=== PATIENT | female | born 2005 | race Caucasian/White ===

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

== ENCOUNTER 2025-10-31 19:01 | Emergency (ER) | payer BC, SELFPAY ==
--- OUTSIDE RECORDS SUMMARY | 2025-10-31 19:12 | XMS_ITS | Data Portability ---
Author Organization [employer] [place] - [place] Address [address] [place] [address] Assessment Encounter Date Assessment Date Assessment LastModified by Organization Details LastModified Time 05/30/2025 05/30/2025 #Contraception/n explanon -VSS, afebrile -Exam benign -ED precautions -Discussed contraception options--she would like to come back to have nexplanon removed prior to her vacation next week, plans to use condoms, wants to go without hormone interim, understands r/b/a -May want to consider US once hormone free for a few months, general questions addressed about endo/PCOS and limited modality to dx clinically; would recommend OTC motrin/tylenol prn during period and tracking RTC first available for removal, sooner prn. Pt verbalized understanding, and all questions addressed. [email or web address] Not available 05/30/2025 16:57:23 06/05/2025 06/05/2025 #Contraception -VSS, afebrile -Exam benign -ED precautions -UPT negative -Counseled on contraception, [facility] Cat 1 POP; discussed r/b/a, how to take, etc. Sample of slynd x 1 mo given in office. RTC 1 year, sooner prn. Pt to call about slynd, if doing well will send refills. Pt verbalized understanding, and all questions addressed. [email or web address] Not available 06/05/2025 14:33:30 09/22/2025 09/22/2025 #Spotting/nausea -VSS, afebrile -Exam benign -ED precautions -UPT pending -Rx diclegis, advised zoloft best studied in , risks assc, need for safe mother for etc. -Vaginitis swab sent RTC as scheduled, sooner prn. Pt v/u, and all questions addressed. [email or web address] Not available 09/22/2025 17:02:47 Plan of Treatment Reminders Order Date Submit Date Provider Last Modified By Organization Details Last Modified Time Details Appointments 2024 09:30A Katia Guerrero, DO Not available Not available Not available Lab aneuploid y risk, chromosom e specific circulati ng cell free (ccf) DNA, maternal serum 2024 025 [email or web address] [facility], [address], [place], [address], 10/30/2025 11:26:09 genetic screen, unspecifi ed specimen 2024 [email or web address] [facility], [address], [place], [address], 10/30/2025 11:26:44 urinalysi s, dipstick 2024 025 [email or web address] [facility], [address] [place] [address], [facility] [address], [place], [address], 10/09/2025 15:04:33 urinalysi s, dipstick 2024 025 [facility], [address] [place] [address], [address], [place], [address], 10/09/2025 17:02:20 panel 2024 [email or web address] [facility], [address] [place] [address], [place], [address], 10/30/2025 08:08:31 unlisted lab - toxassure flex 19, [id number] -P 2024 [email or web address] [facility] ([place]), [address] [facility], [place], [address], 10/30/2025 08:08:31 vaginal pathogens panel, FLYNN+probe , vaginal fluid 2024 025 BISMARCK [facility] ([place]), [address] [place], [address], 09/25/2025 22:06:37 test, urine 2024 025 [email or web address] [facility], [address] [place] [address], [address], [place], [address], 06/05/2025 14:34:37 Referral None recorded. Procedures None recorded. Surgeries None recorded. Imaging US, obstetric , transvagi nal 2024 025 [email or web address] [facility], [address] [place] [address], [address], 10/10/2025 08:54:39 US, obstetric 2024 025 [email or web address] [facility], [address] [place] [address], [address], [place], [address], 10/10/2025 13:58:44 US, pelvis 2024 025 [email or web address] [facility], [address] [place] [address], [address], 04/11/2025 14:18:25 Medication Orders promethaz ine 12.5 mg tablet 2024 025 [id number], [address] [place], [id number], 10/09/2025 16:54:31 Colace 100 mg capsule 2024 025 [id number], [address], [place], [place], [id number], 10/09/2025 16:54:37 Diclegis 10 mg-10 mg tablet,de layed release 2024 025 BISMARCK [id number], [address], [place], [place], [id number], 09/22/2025 17:03:14 Patient TargetsNo targets recorded. Patient Instructions Encounter Date Encounter Id Patient Instructions Last Modified By Organization Details Last Modified Time 01/27/2025 [id number] painful menstrua l cramps: care instructions [email or web address] Not available 01/27/2025 14:31:43 06/05/2025 [id number] implant for arnaud h control: care instructions [email or web address] Not available 06/05/2025 14:34:37 09/22/2025 [id number] secondary amenorrhea: care instructions [email or web address] Not available 09/22/2025 17:03:01 Reason for Referral None Reported. Results Created Date Observation Date Name Description Value Unit Range Abnormal Flag Note LastModifiedBy Organization Detail LastModifiedTime 06/05/2006/05/2025 pregn jia test, urine HCG negati ve Not Available [facility] [address], [place], [address], 06/05/2025 08:07:59 09/22/2009/24/2025 NUSWA B VAGIN ITIS PLUS (VG+) atopobium vaginae Low - 0 score Not Available [facility] ([facility]) [address] [place], [address], 09/25/2025 22:06:37 09/22/20 25 09/24/2025 NUSWA B VAGIN ITIS PLUS (VG+) bvab 2 Low - 0 score Not Available [facility] ([facility]) [address] [facility], [place], [address], 09/25/2025 22:06:37 09/22/20 25 09/24/2025 NUSWA B VAGIN ITIS PLUS (VG+) megasphaera 1 Low - 0 score Calcu late total score by randall morataya the 3 indiv idual bacte rial vagin osis (BV) marke r score s toget her. Total score is inter prete d as follo ws: Total score 0-1: Indic ates the absen ce of BV. Total score 2: Indet ermin ate for BV. Addit ional clini maximilian data shoul d be evalu ated to estab maeve a diagn osis. Total score 3-6: Indic ates the prese nce of BV. Not Available [facility] ([facility]) [address] [place], [address], 09/25/2025 22:06:37 09/22/20 25 09/24/2025 NUSWA B VAGIN ITIS PLUS (VG+) erin albicans, FLYNN Negati ve negati ve Not Available [facility] ([facility]) [address] [place], [address], 09/25/2025 22:06:37 09/22/20 25 09/24/2025 NUSWA B VAGIN ITIS PLUS (VG+) erin glabrata, FLYNN Negati ve negati ve Not Available [facility] ([facility]) [address] [place], [address], 09/25/2025 22:06:37 09/22/20 25 09/25/2025 NUSWA B VAGIN ITIS PLUS (VG+) trich vag by FLYNN Negati ve negati ve Not Available [facility] ([facility]) [address] [place], [address], 09/25/2025 22:06:37 09/22/20 25 09/25/2025 NUSWA B VAGIN ITIS PLUS (VG+) chlamydia trachomatis, FLYNN Negati ve negati ve Not Available [facility] ([facility]) [address] [place], [address], 09/25/2025 22:06:37 09/22/20 25 09/25/2025 NUSWA B VAGIN ITIS PLUS (VG+) neisseria gonorrhoeae, FLYNN Negati ve negati ve Not Available [facility] ([facility]) [address], [place], [address], 09/25/2025 22:06:37 10/09/20 25 10/09/2025 urina lysis , dipst ick Leukocytes Negati ve Not Available [address], [place], [address], 10/09/2025 16:53:26 10/09/20 25 10/09/2025 urina lysis , dipst ick Nitrite negati ve Not Available [address], [place], [address], 10/09/2025 16:53:26 10/09/20 25 10/09/2025 urina lysis , dipst ick Urobilinogen .2 Not Available [address], [place], [address], 10/09/2025 16:53:26 10/09/20 25 10/09/2025 urina lysis , dipst ick Protein Negati ve Not Available [address], [place], [address], 10/09/2025 16:53:26 10/09/20 25 10/09/2025 urina lysis , dipst ick pH 7.0 Not Available [address], [place], [address], 10/09/2025 16:53:26 10/09/20 25 10/09/2025 urina lysis , dipst ick Blood Negati ve Not Available [address], [place], [address], 10/09/2025 16:53:26 10/09/20 25 10/09/2025 urina lysis , dipst ick Specific [place] 1.020 Not Available [address], [place], [address], 10/09/2025 16:53:26 10/09/20 25 10/09/2025 urina lysis , dipst ick Ketone Negati ve Not Available [address], [place], [address], 10/09/2025 16:53:26 10/09/20 25 10/09/2025 urina lysis , dipst ick Bilirubin Negati ve Not Available [address], [place], [address], 10/09/2025 16:53:26 10/09/20 25 10/09/2025 urina lysis , dipst ick Glucose Negati ve Not Available [address], [place], [address], 10/09/2025 16:53:26 10/09/20 25 10/09/2025 urina lysis , dipst ick Leukocytes Negati ve Not Available [address], [place], [address], 09/29/2025 08:17:58 10/09/20 25 10/09/2025 urina lysis , dipst ick Nitrite negati ve Not Available [address], [place], [address], 09/29/2025 08:17:58 10/09/20 25 10/09/2025 urina lysis , dipst ick Urobilinogen .2 Not Available [address], [place], [address], 09/29/2025 08:17:58 10/09/20 25 10/09/2025 urina lysis , dipst ick Protein Negati ve Not Available [address], [place], [address], 09/29/2025 08:17:58 10/09/20 25 10/09/2025 urina lysis , dipst ick pH 7.0 Not Available [address], [place], [address], 09/29/2025 08:17:58 10/09/20 25 10/09/2025 urina lysis , dipst ick Blood Negati ve Not Available [address], [place], [address], 09/29/2025 08:17:58 10/09/20 25 10/09/2025 urina lysis , dipst ick Specific [place] 1.020 Not Available [address], [place], [address], 09/29/2025 08:17:58 10/09/20 25 10/09/2025 urina lysis , dipst ick Ketone Negati ve Not Available [address], [place], [address], 09/29/2025 08:17:58 10/09/20 25 10/09/2025 urina lysis , dipst ick Bilirubin Negati ve Not Available [facility] - [address], [place], [address], 09/29/2025 08:17:58 10/09/20 25 10/09/2025 urina lysis , dipst ick Glucose Negati ve Not Available [facility] - [address], [place], [address], 09/29/2025 08:17:58 10/09/20 25 10/09/2025 US, obste tric, trans vagin al No observ ation record ed. [email or web address] [address] [place] [address], [place], [address], 10/11/2025 09:13:48 10/10/2010/11/2025 US, obste tric No observ ation record ed. [email or web address] [facility] - [address], [place], [address], 10/17/2025 11:25:31 Result Notes None recorded. 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 3 11:24:12 Pelvic and perineal pain 004425450 Active 2022 Joanie Horta APRN [address] [place], [address], [place] [employer] 3 11:24:34 Vaginal irritation 617661268 Active 2022 Joanie Horta, NA[employer] [address] [place] [address], [address], [employer] 3 15:53:33 Abnormal uterine bleeding 2534928064948 0 Active 2024 Joanie Byrneiam [employer] [address] [place] [address], [address], [employer] 5 14:30:29 Dysmenorrhe a 561865243 Active 2024 Joanie Byrneiam NAIL [employer] [address] [place] [address], [address], [employer] 5 14:31:42 Break-throu gh bleeding 04165663 Active 2024 Frida Guerrero [address], [address], [employer] 5 16:55:42 Vaginal discharge 886703083 Active 2024 Frida Guerrero [address], [address], [employer] 5 17:01:28 Amenorrhea 98426114 Active 2024 Frida Guerrero [address], [address], [employer] 5 17:01:40 96927490 Active 2024 Teodora Balderrama [facility], [employer] 5 15:18:53 Problem Notes None recorded. Procedures Surgical History Date Name Laterality Status Provider Name and Address Organization Details Recorded Time 5 Control Implant Removal completed Frida Guerrero DO [address] [place] [address], [address], [employer] 06/05/2025 14:32:27 4 Control Implant Insertion completed Joanielilibeth Horta APRN [address] [place] [address], [address], [facility] [employer], [facility]. 08/12/2024 15:55:32 Imaging Results None recorded. Procedure Notes None recorded. Medical Equipment None Reported. Allergies No known drug allergies Medications Name Sig Start Date Stop Date Status Note LastModified by Organization Details LastModified Time buspirone 5 mg tablet TAKE 1 TABLET BY MOUTH EVERY DAY 11/11 completed Not Available Not Available Not Available norgestimat e 0.25 mg-ethinyl estradiol 0.035 mg tablet Take 1 tablet by oral route. 08/12 completed Not Available Not Available Not Available doxycycline hyclate 100 mg capsule 08/12 completed Not Available Not Available Not Available ibuprofen 800 mg tablet 08/12 completed Not Available Not Available Not Available fluconazole 150 mg tablet TAKE 1 TABLET BY MOUTH EVERY 72 HOURS 12/10 completed Not Available Not Available Not Available promethazin e 12.5 mg tablet TAKE 1 TABLET BY MOUTH EVERY 6 HOURS FOR 14 DAYS NEEDED FOR NAUSEA active Not Available Not Available No t Available phenazopyri dine 200 mg tablet TAKE 1 TABLET BY MOUTH THREE TIMES A DAY 08/12 completed Not Available Not Available Not Available metronidazo le 500 mg tablet TAKE 1 TABLET BY MOUTH EVERY 12 HOURS 12/10 completed Not Available Not Available Not Available ciprofloxac in 500 mg tablet 10/22 completed Not Available Not Available Not Available sulfamethox azole 800 mg-trimetho prim 160 mg tablet TAKE 1 TABLET 2 TIMES EACH DAY FOR 10 DAYS 11/11 completed Not Available Not Available Not Available baclofen 10 mg tablet 10/22 completed Not Available Not Available Not Available docusate sodium 100 mg capsule TAKE 1 CAPSULE BY MOUTH TWICE DAILY active Not Available Not Available No t Available sertraline 25 mg tablet TAKE 1 TABLET BY MOUTH DAILY 09/22 completed Not Available Not Available Not Available montelukast 10 mg tablet 08/12 completed Not Available Not Available Not Available hydrocodone 10 mg-chlorphe niramine 8 mg/5 mL oral susp extend.rel 12hr TAKE 5 ML (1 TEASPOONF UL) EVERY 12 HOURS NEEDED FOR COUGH 11/11 completed Not Available Not Available Not Available norethindro ne (contracept karla) 0.35 mg tablet TAKE 1 TABLET BY MOUTH EVERY DAY 09/22 completed Not Available Not Available Not Available fluticasone propionate 50 mcg/actuati on nasal spray,suspe nsion 10/22 completed Not Available Not Available Not Available doxylamine 10 mg-pyridoxi ne (vit B6) 10 mg tablet,joshua yed release TAKE 2 TABLETS BY MOUTH AT BEDTIME NEEDED FOR NAUSEA active Not Available Not Available No t Available levocetiriz ine 5 mg tablet 10/22 completed Not Available Not Available Not Available Nexplanon 68 mg subdermal implant Inject by subcutane ous route. 09/22 completed Not Available Not Available Not Available Twirla 120 mcg-30 mcg/24 hr transdermal patch Apply 1 patch every week by transderm al route for 21 days. 08/12 completed Not Available Not Available Not Available Nextstellis 3 mg-14.2 mg (28) tablet Take 1 tablet every day by oral route. 01/17 completed Not Available Not Available Not Available Vitals Date Recorded Body height Body mass index (BMI) [Percentile] Per age and sex Body mass index (BMI) Body weight Heart rate Oxygen saturation Systolic And Diastolic Provider Name and Address Organization Details Last Updated DateTime 5 175.26 cm 7 % 18.1 kg/m2 41317.1 4 g 78 /min 100 % 118/70 mm[Hg] Yanni Winters [employer] 5 13:46:31 Date Recorded Body height Body mass index (BMI) Body mass index (BMI) [Percentile] Per age and sex Body weight Heart rate Oxygen saturation Systolic And Diastolic Provider Name and Address Organization Details Last Updated DateTime 5 175.26 cm 17.3 kg/m2 2 % 12528.3 1 g 89 /min 97 % 110/75 mm[Hg] Cami Franz [employer] 5 16:25:07 Date Recorded Body height Body mass index (BMI) [Percentile] Per age and sex Body mass index (BMI) Body weight Heart rate Oxygen saturation Systolic And Diastolic Provider Name and Address Organization Details Last Updated DateTime 5 175.26 cm 3 % 17.5 kg/m2 65494.0 6 g 110 /min 97 % 126/83 mm[Hg] Cami Franz [employer] 5 13:55:15 Date Recorded Body height Body mass index (BMI) Body mass index (BMI) [Percentile] Per age and sex Body weight Heart rate Oxygen saturation Systolic And Diastolic Provider Name and Address Organization Details Last Updated DateTime 5 175.26 cm 17.1 kg/m2 2 % 67278.7 1 g 93 /min 97 % 109/71 mm[Hg] Mehreen Vera [employer] 5 15:47:54 Date Recorded Body height Body mass index (BMI) [Percentile] Per age and sex Body mass index (BMI) Body weight Heart rate Oxygen saturation Systolic And Diastolic Provider Name and Address Organization Details Last Updated DateTime 5 175.26 cm 2 % 17.1 kg/m2 50752.7 1 g 90 /min 98 % 121/75 mm[Hg] Teodora Pinedakel [employer] 5 15:03:23 Social History Question Answer Notes LastModified by Organizat ion Details LastModified Time Tobacco Smoking Status Never Smoker Yanni quintanilla [employer] 10/22/2023 10:46:41 Do You Have An Advance Directive? No [email or web address] Information not available 09/22/2025 Is Your Home Air Conditioned? Yes [email or web address] Information not available 09/22/2025 If You Are , What Was Your Level Of Alcohol Consumption Prior To ? None [email or web address] Information not available 10/22/2023 Do You Wear A Helmet When Biking? Yes Information not available 08/12/2024 What Is Your Level Of Caffeine Consumption? Moderate [email or web address] Information not available 09/22/2025 Are You A Caregiver? No [email or web address] Information not available 09/22/2025 In The 14 Days Before Symptom Onset, Have You Had Close Contact With A Laboratory-confir med COVID-19 While That Case Was Ill? No Information not available 08/12/2024 In The 14 Days Before Symptom Onset, Have You Had Close Contact With A Person Who Is Under Investigation For COVID-19 While That Person Was Ill? No Information not available 08/12/2024 Have You Been To An Area Known To Be High Risk For COVID-19? No Information not available 08/12/2024 What Type Of Diet Are You Following? REGULAR Information not available 08/12/2024 What Is The Highest Grade Or Level Of School You Have Completed Or The Highest Degree You Have Received? [id number] [email or web address] Information not available 09/22/2025 Have There Been Any Changes To Your Family Or Social Situation? No [email or web address] Information no t available 09/22/2025 Are There Any Guns Present In Your Home? Yes [email or web address] Information not available 09/22/2025 Which Of Your Hands Is Dominant? Right [email or web address] Information not available 09/22/2025 Where Do You Live? SingleLevelHouse [email or web address] Information not available 09/22/2025 Do You Have A Medical Power Of Digital Product Manager? No [email or web address] Information not available 09/22/2025 What Was The Date Of Your Most Recent Tobacco Screening? 10/09/2025 [email or web address] Information not available 09/29/2025 Are There Any Occupational Health Risks Where You Work? No [email or web address] Information not available 09/22/2025 Do You Have Any Pets? Yes [email or web address] Information not available 09/22/2025 What Is Your Relationship Status? [email or web address] Information not available 09/22/2025 Do You Wear A Seatbelt When Driving Or As A Passenger? Yes Information not available 09/22/2025 Do You Use Your Seat Belt Or Car Seat Routinely? Yes Information not available 08/12/2024 Are You Sexually Active? Yes [email or web address] Information not available 10/22/2023 Do You Have Smoke And Carbon Monoxide Detectors In Your Home? Yes [email or web address] Information not available 09/22/2025 Are You Passively Exposed To Smoke? Yes [email or web address] Information no t available 09/22/2025 Are There Any Smokers In Your House? No [email or web address] Information not available 09/22/2025 Do You Participate In Social Media? Yes Information not available 08/12/2024 Has Tobacco Cessation Counseling Been Provided? Yes Information not available 08/12/2024 On What Date Was Tobacco Cessation Counseling Provided? 01/27/2025 [email or web address] Information not available 01/27/2025 Have You Recently Traveled Abroad? No Information not available 08/12/2024 Are You Currently In School? No [email or web address] Information not available 09/22/2025 Do You Feel Safe In Your Home? Yes [email or web address] Information not available 09/22/2025 Do You Have Any Dietary Restrictions? No Information not available 08/12/2024 Sex: Unknown Functional Status Question Answer Note LastModified by Organizat ion Details LastModified Time Do you use any illicit or recreational drugs? No [email or web address] Information not available 10/22/2023 Do you or have you ever used any other forms of tobacco or nicotine? No [email or web address] Information not available 10/22/2023 What is your level of alcohol consumption? None [email or web address] Information not available 10/22/2023 Are you currently employed? Yes [email or web address] Information not available 09/22/2025 Do you have transportation difficulties? No [email or web address] Information not available 09/22/2025 Are you able to care for yourself independently? Yes [email or web address] Information not available 09/22/2025 What is your exercise level? Occasional Information not available 08/12/2024 Mental Status Question Answer Note LastModified by Organization D etails LastModified Time Do you feel stressed (tense, restless, nervous, or anxious, or unable to sleep at night)? [id number] Information not available 08/12/2024 Are you or have you been involved with bullying? No Information not available 08/12/2024 Family History Relationship Description Onset Age of this Age Resolved Age Notes LastModified by Organization Details LastModified Time Maternal Grandmother Malignant neoplasm of breast [email or web address] Not available 2022 10:52:39 Paternal Grandfather Diabetes mellitus [email or web address] Not available 2022 10:52:57 Paternal Grandmother Diabetes mellitus dtevis Not available 2022 10:52:57 Paternal Grandmother Cerebrovascu lar accident API-27 Not available 13:39:33 Mother Hypertensive disorder dtevis Not available 2022 10:53:42 Medical History Condition Response Allergies (Food, seasonal, environmental ) N Other N Hyperthyroidism N Drug/Latex Allergies/Reactions N Breast Cancer N Blood Transfusion N Emergency room visit since last appointm ent. N Lung Disease N Hypothyroidism N Dermatologic Disorders N Defects or Inherited Disease N Breast Problem N Gestational Diabetes N Hematologic disorders N Anesthesia Complications N History of STI N Deep Vein Thrombosis N Polycystic ovary syndrome N Anxiety Disorder Y Autoimmune disease N Vision or Eye Problems N Arthritis N Polyps N Infertility N Mental Disorder N Congenital Anomalies N History of abnormal pap N Acid Reflux (GERD) N Cancer N Stroke N Neurologic/Epilepsy N Endometriosis N High Cholesterol N Psychiatric/Mental Health Condition N Organ Transplant N Schizophrenia N Headaches N Fibromyalgia N Dialysis N Kidney Disease N Heart Problems N Hospitalizations N Thyroid Problems N Kidney or Bladder Problems N GI Problems N Acne N Eating Disorder N Anemia N Art (IVF or FET) N Mental Illness N Ovarian Cancer N Diabetes N Pulmonary (TB, Asthma) N Hepatitis/Liver Disease N Eczema N Abuse/Domestic Violence N Asthma N Trauma/Violence N Substance Abuse N Depression/ depression N Heart Disease N Pre-Eclampsia N Hypertension N Osteoporosis N Thrombophilias N Gynecological History Statement/Question Response Flow Heavy Sexually Active? Y On BCP's at Conception? Y Menses Monthly Y STIs/STDs N HPV Vaccine N Date of Last Pap Smear Sexual Problems? N Age at Menarche 14 Current Control Method LMP Approximate Obstetrics History GPAL:G 1 P 0 0 0 0 Past Encounters Encounter ID Performer Location Encounter Start Date Encounter Closed Date Diagnosis/Indication Diagnosis SNOMED-CT Code Diagnosis ICD10 Code Diagnosis IMO Codes Diagnosis Note [id number] Joanie Horta [facility] [address] [place] [id number] 10/22/2023 10:37:00 10/22/2023 13:37:55 Dysuria-frequency syndrome 6344313 R30.0 Pelvic and perineal pain 184598196 R10.2 Surveillan ce of contraception 090694423 Z30.40 [id number] Joanie Horta [facility] [address] [place] [id number] 11/30/2023 14:33:54 11/30/2023 16:03:10 Surveillance of contraception 344688614 Z30.40 [id number] Joanie Horta [facility] [place] [id number] 12/10/2023 17:07:09 12/10/2023 17:40:26 Initiation of transdermal contraception done 1871096764 96179 Z30.380 [id number] [facility] [place] [address] 08/12/2024 15:40:03 08/12/2024 16:40:59 Implantation of subcutaneous contraceptive 797057006 Z30.46 [id number] [facility] [place] [place] [address] 11/11/2024 09:32:27 11/11/2024 09:53:07 Gynecologic examination 61610342 Z01.419 Surveillan ce of subcutaneous contraceptive implant 848677609 Z30.46 Venereal d isease screening 813823777 Z11.3 [id number] Joanie Horta [facility] [place] [address] 01/27/2025 13:39:32 01/27/2025 14:21:25 Abnormal uterine bleeding 0569856224 9100 N93.9 Surveillan ce of contraception 400810566 Z30.40 Dysmenorrhea 541401585 N 94.[id number],[place] [address] 05/30/2025 16:17:03 05/30/2025 17:00:15 Break-through bleeding 01866969 N92.1 Z97.5 [id number] Contracept karla counseling 7603829612 5 Z30.09 16944276 [id number] Frida Guerrero[address],[facility] [place] [address] 06/05/2025 13:43:31 06/05/2025 14:19:48 Subcutaneous contraceptive implant present 469061013 Z30.46 [id number] Initial pr escription of oral contraception 353787470 Z30.005 6405468 [id number] Frida Guerrero DO [address],[place] [address] 09/22/2025 15:34:11 09/22/2025 16:46:57 Vaginal discharge 414521630 N89.8 44698 Amenorrhea 71666547 N91. 2 35212 [id number] Frida Guerrero DO [address],[place] [address] 10/09/2025 14:41:38 10/09/2025 16:07:04 Intrauterine 92142132 Z34.90 8249641 screening 2437 99390 Z36.0 Reproducti ve care management 770695341 Z31.430 Health Concerns Section Related Observation LastModified by Organization Detai ls LastModified Time None Recorded Concern Status LastModified by Organization Details LastModified Time None Recorded Advance Directives Directive N: Payers Insurance Date Sequence Insurance Name Policy Number Policy Conde Covered Member ID Conde Member ID Guarantor Name 10/06/2025 1 [place] [id number] Yesica Zimmerman [id number] AB Yesica Zimmerman 10/21/2023 1 *SELF PAY* Elliot Zimmerman 01/27/2025 1 [place] [id number] Reynold Zimmerman [id number] Yesica Zimmerman Notes Date Note Type Note Provider Name and Address Organization Details Recorded Time 01/27/2025 text/html ROS as noted in the HPI Pt presents with concerns for heavy and frequent bleeding with her nexplanon. She had it placed in July, and she did well with it the first 3 months, but she reports she has been bleeding over half the month the last 3 months. We discussed imaging and will trial a pack of OCPs. She does not want the device removed at this time, but is considering other options. Joanie Horta, NAIL TECH [address] [place], [address], [employer] 01/27/2025 14:32:24 05/30/2025 text/html ROS as noted in the HPI 19yo presents to discuss bleeding on nexplanon. States she has been on pills in past, had bleeding and pain. She switched to twirla, had a rash when adhesive changed. She had nexplanon placed 1 year ago, has had pain with period and bleeding frequently for a year. She at one point took OCP on top of nexplanon, bleeding stopped. She stopped pills and bleeding returned. She was using this for cycle control and prevention. She is concerned about endo and PCOS. States she has women in her family with it. Denies fever, chills, n/v/d, dysuria, vaginal discharge. Frida Guerrero DO [address] [place] [address], [address], [employer] 05/30/2025 16:58:48 06/05/2025 text/html ROS as noted in the HPI 19yo presents for contraception and nexplanon removal. She would like to start on POP today after nexplanon removal. No changes to hx, meds, allergies. Denies fever, chills, n/v/d, dysuria, vaginal discharge. Frida Guerrero DO [address] [place] [address], [address], [employer] 06/05/2025 14:34:40 09/22/2025 text/html ROS as noted in the HPI 20yo presents for spotting and cramping. LMP 9/21. Taking PNV. Had intercourse and noticed spotting. Requesting meds for nausea. No changes to hx, meds, allergies. No SI/HI. Stopped zoloft w/+UPT. Denies fever, chills, diarrhea, dysuria. Frida Guerrero DO [address] [place] [address], [address], [employer] 09/22/2025 17:03:25 10/09/2025 text/html Generic HPI TemplateReported by Patient Frida Guerrero DO [address] [place], [address], [facility] [employer], [employer] 10/09/2025 17:00:37 OBGyn Episode Ob Episode Information Episode Created Date Number of Fetuses Patient Bloodtype Patient rh Status Prepregnancy Weight lbs Domestic Partner Domestic Partner Phone Father Name Marine Service Operator Status 10/09/20 25 1 Carlito Jhaveri OPEN Fetus Data First Name Last Name Admitted to NICU Weight (g) Sex Living Outcome Pediatric Complications Fetus ID Race Codes Race Delivery Type [id number] Kee Calculation Initial Kee Date Initial Exam Date Initial Exam Provider Initial Ultrasound Date Last Menstrual Period Date Ultra Sound Weeks Gestation 10/09/2025 10/09/2025 9 Eighteen To Twenty Week Kee Update Ultra Sound Date Fundal Height At Umbil Quickening Date Ultra Sound Latest Weeks Gestation Final Kee Confirmed By Final Kee Confirmed Date Final Kee Date Ultra Sound Latest Days Gestation 10/09/20 25 0 [email or web address] 10/09/2025 05/11/20 26 0 Pre- Flowsheet Flowsheet Date 10/09/2025 Loo Score Blood Edema Fundus Height Fundus Units Glucose Ketones Leukocytes Nitrite Labor Signs Protein Cervic Dilation Cervic Effacement Cervic Station none neg Type Weight in lbs Pre/Post Dialysis Refused With clothes 116.584643851418 BP Diastolic BP Location Tested BP Systolic BP Type 75 121 sitting Fetus Heart Rate Present A US Fetus Movement Comments Has spotting with bowel move ment, is sure it is coming from vagina and not anal/rectal. Rx colace at her request for constipation. Rx promethazine PO for nausea. Discussed MARY, advised pelvic rest. VSS, afebrile. Exam benign. US dating. Wants to wait until >10weeks to do NIPT and PNL. Ordered if she wants to come prior to next visit. She is concerned about preE, will do ASA 81mg for ppx starting at next visit. SAB/ED precautions. RTC 4 weeks, sooner prn. Pt v/u, and all questions addressed. Menstrual History Last Menstrual Date Menses Monthly On Bcp Conception Prior Menses Frequency Hcg Plus Date Menarche Onset Age Genetic Screening And Infection History Question Response Note Patient's Age Will Be 35 Years Or Older At Estim ated Date of Delivery false Thalassemia (English, Persian, Mediterranean, Or Background): MCV < 80 false Neural Tube Defect (Meningomyelocele, Spina Bifi da, Or Anencephaly) false Congenital Heart Defect false Down Syndrome false Morgan-Sachs (eg, Sikhism, Cajun, Belarusian-[place]) f alse Kelechi Disease false Sickle Cell Disease Or Trait () false Hemophilia Or Other Blood Disorders false Muscular Dystrophy false Cystic Fibrosis false Debra's Chorea false Intellectual Disability/Autism false If Yes, Was Person Tested For Fragile X? false Other Inherited Genetic Or Chromosomal Disorder false Maternal Metabolic Disorder (eg, Type 1 Diabetes , PKU) false Patient Or Baby's Father Had A Child With Defects Not Listed Above false Recurrent Loss, Or A Stillbirth false Medications (including Suppl ements, Vitamins, Herbs, OTC Drugs), Illicit/Recreational Drugs, Alcohol false If Yes, Agent(s) And Strength/Dosage false Any Other Genetic History false Live With Someone With TB Or Exposed To TB false Patient Or Partner Has History Of Genital Herpes false Rash Or Viral Illness Since Last Menstrual Perio d false History Of STD, Gonorrhea, Chlamydia, HPV, Syphi lis false Other Infection History false Prior GBS-infected child false History of HIV false History of Hepatitis false Hemoglobinopathy Or Carrier false Recent Travel History Outside of Country false Other Structural Defect false Mental Retardation/Autism true Delivery Information Delivery Date Delivery Type Labor Anesthesia Weeks Gestation Incision Type Labor Labor Length Hrs Delivered By Post Complications Tubal Sterilization Discharge Date Comments Discharge Information Feeding Method Contraceptive Method Maternal HG B and HCT Levels
--- OUTSIDE RECORDS SUMMARY | 2025-10-31 19:12 | XMS_ITS | Continuity of Care Document ---
Author Organization [facility] Address [address] [place] [address] [place] [address] Assessment No assessment recorded. Plan of Treatment Reminders Order Date Submit Date Provider Last Modified By Organization Details Last Modified Time Details Appointments 2024 09:30A Katia Guerrero, DO Not available Not available Not available Lab aneuploid y risk, chromosom e specific circulati ng cell free (ccf) DNA, maternal serum 2024 025 [email or web address] [facility], [address], [place], [address], 10/30/2025 11:26:09 genetic screen, unspecifi ed specimen 2024 025 [email or web address] [facility], [address], [place], [address], 10/30/2025 11:26:44 urinalysi s, dipstick [email or web address], [address] [place] [address], [address], [place], [address], 10/09/2025 15:04:33 urinalysi s, dipstick 2024 0[facility], [address] [place] [address], [address], [place], [address], 10/09/2025 17:02:20 panel [address], [address] [place] [address], [address], 10/30/2025 08:08:31 unlisted lab - toxassure flex 19, [id number] -P [address]), [facility] [place], [address], 10/30/2025 08:08:31 Referral None recorded. Procedures None recorded. Surgeries None recorded. Imaging US, obstetric , transvagi nal [email or web address] [place] [address], [address] [place] [address], [address], 10/10/2025 08:54:39 US, obstetric 2024 [email or web address] [facility], [address] [place] [address], [address], [place], [address], 10/10/2025 13:58:44 Medication Orders promethaz ine 12.5 mg tablet 2024 [id number], [address] [place], [id number], 10/09/2025 16:54:31 Colace 100 mg capsule 2024 [facility][id number], [address] [place], [place], [id number], 10/09/2025 16:54:37 Patient TargetsNo targets recorded. Patient InstructionsNo instructions recorded. Reason for Referral None Reported. Results Created Date Observation Date Name Description Value Unit Range Abnormal Flag Note LastModifiedBy Organization Detail LastModifiedTime 10/09/2010/09/2025 urina lysis , dipst ick Leukocytes Negati ve Not Available [address], [place], [address], 10/09/2025 16:53:26 10/09/20 25 10/09/2025 urina lysis , dipst ick Nitrite negati ve Not Available [address], [place], [address], 10/09/2025 16:53:26 10/09/20 25 10/09/2025 urina lysis , dipst ick Urobilinogen .2 Not Available [address], [place], [address], 10/09/2025 16:53:26 10/09/20 25 10/09/2025 urina lysis , dipst ick Protein Negati ve Not Available [address], [place], [address], 10/09/2025 16:53:26 10/09/20 25 10/09/2025 urina lysis , dipst ick pH 7.0 Not Available [address], [place], [address], 10/09/2025 16:53:26 10/09/20 25 10/09/2025 urina lysis , dipst ick Blood Negati ve Not Available [address], [place], [address], 10/09/2025 16:53:26 10/09/20 25 10/09/2025 urina lysis , dipst ick Specific [place] 1.020 Not Available [facility] [address], [place], [address], 10/09/2025 16:53:26 10/09/20 25 10/09/2025 urina lysis , dipst ick Ketone Negati ve Not Available [address], [place], [address], 10/09/2025 16:53:26 10/09/20 25 10/09/2025 urina lysis , dipst ick Bilirubin Negati ve Not Available [address], [place], [address], 10/09/2025 16:53:26 10/09/20 25 10/09/2025 urina lysis , dipst ick Glucose Negati ve Not Available [address], [place], [address], 10/09/2025 16:53:26 10/09/20 25 10/09/2025 urina lysis , dipst ick Leukocytes Negati ve Not Available [address], [place], [address], 09/29/2025 08:17:58 10/09/20 25 10/09/2025 urina lysis , dipst ick Nitrite negati ve Not Available [address], [place], [address], 09/29/2025 08:17:58 10/09/20 25 10/09/2025 urina lysis , dipst ick Urobilinogen .2 Not Available [address], [place], [address], 09/29/2025 08:17:58 10/09/20 25 10/09/2025 urina lysis , dipst ick Protein Negati ve Not Available [address], [place], [address], 09/29/2025 08:17:58 10/09/20 25 10/09/2025 urina lysis , dipst ick pH 7.0 Not Available [address], [place], [address], 09/29/2025 08:17:58 10/09/20 25 10/09/2025 urina lysis , dipst ick Blood Negati ve Not Available [address], [place], [address], 09/29/2025 08:17:58 10/09/20 25 10/09/2025 urina lysis , dipst ick Specific Helotes 1.020 Not Available [address], [place], [address], 09/29/2025 08:17:58 10/09/20 25 10/09/2025 urina lysis , dipst ick Ketone Negati ve Not Available [address], [place], [address], 09/29/2025 08:17:58 10/09/20 25 10/09/2025 urina lysis , dipst ick Bilirubin Negati ve Not Available [address], [place], [address], 09/29/2025 08:17:58 10/09/2010/09/2025 urina lysis , dipst ick Glucose Negati ve Not Available [address], [place], [address], 09/29/2025 08:17:58 10/09/2010/09/2025 US, obste tric, trans vagin al No observ ation record ed. [email or web address] Verónica [address], [place], [address], 10/11/2025 09:13:48 10/10/2010/11/2025 US, obste tric No observ ation record ed. [email or web address] [facility] - [address], [place], [address], 10/17/2025 11:25:31 Result Notes None recorded. 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 3 11:24:12 Pelvic and perineal pain 489980197 Active 2022 Joanie Horta APRN [address] [place], [address], [place] [employer] 3 11:24:34 Vaginal irritation 664976308 Active 2022 Joanie Horta APRN [address] [place], [address], [employer] 3 15:53:33 Abnormal uterine bleeding 9776867959788 0 Active 2024 Joanie Horta APRN [address] [place], [address], [employer] 5 14:30:29 Dysmenorrhe a 049205294 Active 2024 Joanie Horta APRN [address] [place] [address], [address], [employer] 5 14:31:42 Break-throu gh bleeding 19075834 Active 2024 Frida Guerrero [address], [address], [employer] 16:55:42 Vaginal discharge 230191164 Active 2024 Frida Guerrero [address], [address], [employer] 17:01:28 Amenorrhea 92757277 Active 2024 Frida Guerrero [address], [address], [employer] 17:01:40 31092571 Active 2024 Teodora Balderrama socorro, [employer] 15:18:53 Problem Notes None recorded. Procedures Surgical History Date Name Laterality Status Provider Name and Address Organization Details Recorded Time 5 Control Implant Removal completed Frida Guerrero DO [address] [place] [address], [address], [employer] 06/05/2025 14:32:27 4 Control Implant Insertion completed Joanie Horta APRN [address] [place] [address], [address], [employer] 08/12/2024 15:55:32 Imaging Results None recorded. Procedure [...] and Address Organization Details Last Updated DateTime 175.26 cm 2 % 17.1 kg/m2 13222.7 1 g 90 /min 98 % 121/75 mm[Hg] Teodora Balderrama [employer] 15:03:23 Social History Question Answer Notes LastModified by Organizat ion Details LastModified Time Tobacco Smoking Status Never Smoker Yanni quintanilla [employer] 10/22/2023 10:46:41 Do You Have An Advance Directive? No [email or web address] Information not available 09/22/2025 Is Your Home Air Conditioned? Yes [email or web address] Information not available 09/22/2025 If You Are , What Was Your Level Of Alcohol Consumption Prior To ? None [email or web address] Information not available 10/22/2023 Do You Wear A Helmet When Biking? Yes Information not available 08/12/2024 What Is Your Level Of Caffeine Consumption? Moderate [email or web address] Information not available 09/22/2025 Are You A Caregiver? No [email or web address] Information not available 09/22/2025 In The 14 [...] Or The Highest Degree You Have Received? [id number] [email or web address] Information not available 09/22/2025 Have There Been Any Changes To Your Family Or Social Situation? No [email or web address] Information no t available 09/22/2025 Are There Any Guns Present In Your Home? Yes [email or web address] Information not available 09/22/2025 Which Of Your Hands Is Dominant? Right [email or web address] Information not available 09/22/2025 Where Do You Live? SingleLevelHouse [email or web address] Information not available 09/22/2025 Do You Have A Medical Power Of Snuff Blender? No [email or web address] Information not available 09/22/2025 What Was The Date Of Your Most Recent Tobacco Screening? 10/09/2025 [email or web address] Information not available 09/29/2025 Are There Any Occupational Health Risks Where You Work? No Information not available 09/22/2025 Do You Have Any Pets? Yes [email or web address] Information not available 09/22/2025 What Is Your Relationship Status? [email or web address] Information not available 09/22/2025 Do You Wear A Seatbelt When Driving Or As A Passenger? Yes [email or web address] Information not available 09/22/2025 Do You Use Your Seat Belt Or Car Seat Routinely? Yes Information not available 08/12/2024 Are You Sexually Active? Yes [email or web address] Information not available 10/22/2023 Do You Have Smoke And Carbon Monoxide Detectors In Your Home? Yes Information not available 09/22/2025 Are You Passively Exposed To Smoke? Yes [email or web address] Information no t available 09/22/2025 Are There Any Smokers In Your House? No [email or web address] Information not available 09/22/2025 Do You Participate In Social Media? Yes Information not available 08/12/2024 Has Tobacco Cessation Counseling Been Provided? Yes Information not available 08/12/2024 On What Date Was Tobacco Cessation Counseling Provided? 01/27/2025 [email or web address] Information not available 01/27/2025 Have You Recently Traveled Abroad? No Information not available 08/12/2024 Are You Currently In School? No [email or web address] Information not available 09/22/2025 Do You Feel Safe In Your Home? Yes [email or web address] Information not available 09/22/2025 Do You Have Any Dietary Restrictions? No Information not available 08/12/2024 Sex: Unknown Functional Status Question Answer Note LastModified by Organizat ion Details LastModified Time Do you use any illicit or recreational drugs? No [email or web address] Information not available 10/22/2023 Do you or have you ever used any other forms of tobacco or nicotine? No [email or web address] Information not available 10/22/2023 What is your level of alcohol consumption? None [email or web address] Information not available 10/22/2023 Are you currently employed? Yes [email or web address] Information not available 09/22/2025 Do you have transportation difficulties? No [email or web address] Information not available 09/22/2025 Are you able to care for yourself independently? Yes [email or web address] Information not available 09/22/2025 What is your exercise level? Occasional Information not available 08/12/2024 Mental Status Question Answer Note LastModified by Organization D etails LastModified Time Do you feel stressed (tense, restless, nervous, or anxious, or unable to sleep at night)? [id number] Information not available 08/12/2024 Are you or [...] environmental ) N Other N Hyperthyroidism N Blood Transfusion N Drug/Latex Allergies/Reactions N Breast Cancer N Emergency room visit since last appointm ent. N Hypothyroidism N Lung Disease N Dermatologic Disorders N Defects or Inherited Disease N Breast Problem N Gestational Diabetes N Hematologic disorders N Anesthesia Complications N History of STI N Deep Vein Thrombosis N Polycystic ovary syndrome N Anxiety Disorder Y Autoimmune disease N Vision or Eye Problems N Arthritis N Polyps N Infertility N Mental Disorder N Congenital Anomalies N Acid Reflux (GERD) N History of abnormal pap N Cancer N Stroke N Neurologic/Epilepsy N Endometriosis N High Cholesterol N Organ Transplant N Psychiatric/Mental Health Condition N Fibromyalgia N Schizophrenia N Dialysis N Headaches N Kidney Disease N Heart Problems N Hospitalizations N Thyroid Problems N Kidney or Bladder Problems N GI Problems N Acne N Eating Disorder N Anemia N Art (IVF or FET) N Mental Illness N Diabetes N Ovarian Cancer N Pulmonary (TB, Asthma) N Hepatitis/Liver Disease [...] ICD10 Code Diagnosis IMO Codes Diagnosis Note [id number] Frida Guerrero[address] [address] 09/22/2025 15:34:11 09/22/2025 16:46:57 Vaginal discharge 306411739 N89.8 28387 Amenorrhea 13461065 N91. 2 [id number] [id number] Frida Guerrero [address] [address] 10/09/2025 14:41:38 10/09/2025 16:07:04 Intrauterine 59460441 Z34.90 7688589 screening 2437 06420 Z36.0 Reproducti ve care management 587228067 Z31.430 Health Concerns Section Related Observation LastModified by Organization Detai ls LastModified Time None Recorded Concern Status LastModified by Organization Details LastModified Time None Recorded Payers Encounter Date Sequence Insurance Name Policy Number Policy Conde Covered Member ID Conde Member ID Guarantor Name 10/09/2025 1 [place] [id number] Yesica Neri Maupin [id number] AB Yesica Elsie Notes Date Note Type Note Provider Name and Address Organization Details Recorded Time 10/09/2025 text/html Generic HPI TemplateReported by Patient Frida Guerrero, DO [address] [place] [address], [address], [employer] 10/09/2025 17:00:37 OBGyn Episode Ob Episode Information Episode Created Date Number of Fetuses Patient Bloodtype Patient rh Status Prepregnancy Weight lbs Domestic Partner Domestic Partner Phone Father Name Sensor Specialist Status 10/09/20 25 1 Carlito Jhaveri OPEN Fetus Data First Name Last Name Admitted to NICU Weight (g) Sex Living Outcome Pediatric Complications Fetus ID Race Codes Race Delivery Type 48363 Kee Calculation Initial Kee Date Initial Exam [...] Sound Latest Days Gestation 10/09/20 25 0 [email or web address] 10/09/2025 05/11/20 26 0 Pre- Flowsheet Flowsheet Date 10/09/2025 Loo Score Blood Edema Fundus Height Fundus Units Glucose Ketones Leukocytes Nitrite Labor Signs Protein Cervic Dilation Cervic Effacement Cervic Station none neg Type Weight in lbs Pre/Post Dialysis Refused With clothes 116.796917149901 BP Diastolic BP Location Tested BP Systolic [...] Estim ated Date of Delivery false Thalassemia (Yakut, Salvadorean, Mediterranean, Or Background): MCV < 80 false Neural Tube Defect (Meningomyelocele, Spina Bifi da, Or Anencephaly) false Congenital Heart Defect false Down Syndrome false Morgan-Sachs (eg, Voodoo, Cajun, Macedonian-[place]) f alse Kelechi Disease false Sickle Cell [...]
--- OUTSIDE RECORDS SUMMARY | 2025-10-31 19:12 | XMS_ITS | Continuity of Care Document ---
Author Organization [place] - [employer], [facility] Address [address] [place] [address] [place] [address] Assessment Encounter Date Assessment Date Assessment LastModified by Organization Details LastModified Time 09/22/2025 09/22/2025 #Spotting/naus ea -VSS, afebrile -Exam benign -ED precautions -UPT pending -Rx diclegis, advised zoloft best studied in , risks assc, need for safe mother for etc. -Vaginitis swab sent RTC as scheduled, sooner prn. Pt v/u, and all questions addressed. Not available 09/22/2025 17:02:47 Plan of Treatment Reminders Order Date Submit Date Provider Last Modified By Organization Details Last Modified Time Details Appointments 2024 09:30A Katia Guerrero, DO Not available Not available Not available Lab vaginal pathogens panel, FLYNN+probe , vaginal fluid 2024 025 [facility], [address] [place] [address], [place], [address], 09/25/2025 22:06:37 Referral None recorded. Procedures None recorded. Surgeries None recorded. Imaging None recorded. Medication Orders Diclegis 10 mg-10 mg tablet,de layed release 2024 025 [id number], [address], [place], [place], [id number], 09/22/2025 17:03:14 Patient TargetsNo targets recorded. Patient Instructions Encounter Date Encounter Id Patient Instructions Last Modified By Organization Details Last Modified Time 09/22/2025 [id number] secondary amenorrhea: care instructions Not available 09/22/2025 17:03:01 Reason for Referral None Reported. Results Created Date Observation Date Name Description Value Unit Range Abnormal Flag Note LastModifiedBy Organization Detail LastModifiedTime 09/22/2009/24/2025 NUSWA B VAGIN ITIS PLUS (VG+) atopobium vaginae Low - 0 score Not Available [facility] ([facility]) [address] [place], [address], 09/25/2025 22:06:37 09/22/2009/24/2025 NUA B VAGIN ITIS PLUS (VG+) bvab 2 Low - 0 score Not Available [facility] ([facility]) [address] [place], [address], 09/25/2025 22:06:37 09/22/2009/24/2025 NUA B VAGIN ITIS PLUS (VG+) megasphaera 1 [...] prese nce of BV. Not Available [facility] ([facility]) [address] [place], [address], 09/25/2025 22:06:37 09/22/20 25 09/24/2025 NUA B VAGIN ITIS PLUS (VG+) erin albicans, FLYNN Negati ve negati ve Not Available [facility] ([facility]) [address] [place], [address], 09/25/2025 22:06:37 09/22/2009/24/2025 NUSWA B VAGIN ITIS PLUS (VG+) erin glabrata, FLYNN Negati ve negati ve Not Available [facility] ([facility]) [address] [facility], [place], [address], 09/25/2025 22:06:37 09/22/2009/25/2025 NUSWA B VAGIN ITIS PLUS (VG+) trich vag by FLYNN Negati ve negati ve Not Available [facility] ([facility]) [address] [facility], [place], [address], 09/25/2025 22:06:37 09/22/2009/25/2025 NUA B VAGIN ITIS PLUS (VG+) chlamydia trachomatis, FLYNN Negati ve negati ve Not Available [facility] ([facility]) [address] [facility], [place], [address], 09/25/2025 22:06:37 09/22/2009/25/2025 NUA B VAGIN ITIS PLUS (VG+) neisseria gonorrhoeae, FLYNN Negati ve negati ve Not Available [facility] ([facility]) [address] [facility], [place], [address], 09/25/2025 22:06:37 10/09/2010/09/2025 US, obste tric, trans vagin al No observ ation record ed. [email or web address] [facility] [address] [place] [address], [place], [address], 10/11/2025 09:13:48 10/10/2010/11/2025 US, obste tric No observ ation record ed. [facility] [address], [place], [address], 10/17/2025 11:25:31 Result Notes None recorded. 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 3 11:24:12 Pelvic and perineal pain 666079354 Active 2022 Joanie Horta APRN [address] [place] [address], [address], [employer] 3 11:24:34 Vaginal irritation 776538539 Active 2022 Joanie Horta APRN [address] [place] [address], [address], [employer] 3 15:53:33 Abnormal uterine bleeding 1370046189410 0 Active 2024 Joanie Horta APRN [address] [place] [address], [address], [employer] 5 14:30:29 Dysmenorrhe a 192325423 Active 2024 Joanie Horta APRN [address] [place] [address], [address], [employer] 5 14:31:42 Break-throu gh bleeding 89858645 Active 2024 Frida Guerrero DO [address] [place] [address], [address], [employer] 5 16:55:42 Vaginal discharge 148358372 Active 2024 Frida Guerrero [address], [address], [employer] 5 17:01:28 Amenorrhea 46226729 Active 2024 Frida Guerrero [address], [address], [employer] 5 17:01:40 72881726 Active 2024 Teodora Balderrama null, [employer] 5 15:18:53 Problem Notes None recorded. Procedures Surgical History Date Name Laterality Status Provider Name and Address Organization Details Recorded Time 5 Control Implant Removal completed Frida Guerrero, DO [address] [place] [address], [address], [employer] 06/05/2025 14:32:27 4 Control Implant Insertion completed Joanie Horta [employer] [address] [place], [address], [employer] 08/12/2024 15:55:32 Imaging Results None recorded. [...] Organization Details Last Updated DateTime 175.26 cm 17.1 kg/m2 2 % 46245.7 1 g 93 /min 97 % 109/71 mm[Hg] [facility] [employer] [facility]. 5 15:47:54 Social History Question Answer Notes LastModified by Organizat ion Details LastModified Time Tobacco Smoking Status Never Smoker Yanni quintanilla, [facility] [employer] 10/22/2023 10:46:41 Do You Have An Advance Directive? No [email or web address] Information not available 09/22/2025 Is Your Home Air Conditioned? Yes [email or web address] Information not available 09/22/2025 If You Are , What Was Your Level Of Alcohol Consumption Prior To ? None [email or web address] Information not available 10/22/2023 Do You Wear A Helmet When Biking? Yes Information not available 08/12/2024 What Is Your Level Of Caffeine Consumption? Moderate [email or web address] Information not available 09/22/2025 Are You A Caregiver? No [email or web address] Information not available 09/22/2025 In The 14 [...] Or The Highest Degree You Have Received? YE30985-9 [email or web address] Information not available 09/22/2025 Have There Been Any Changes To Your Family Or Social Situation? No [email or web address] Information no t available 09/22/2025 Are There Any Guns Present In Your Home? Yes [email or web address] Information not available 09/22/2025 Which Of Your Hands Is Dominant? Right [email or web address] Information not available 09/22/2025 Where Do You Live? SingleLevelHouse [email or web address] Information not available 09/22/2025 Do You Have A Medical Power Of Oncology Research Rn? No [email or web address] Information not available 09/22/2025 What Was The Date Of Your Most Recent Tobacco Screening? 10/09/2025 [email or web address] Information not available 09/29/2025 Are There Any Occupational Health Risks Where You Work? No [email or web address] Information not available 09/22/2025 Do You Have Any Pets? Yes Information not available 09/22/2025 What Is Your Relationship Status? [email or web address] Information not available 09/22/2025 Do You Wear A Seatbelt When Driving Or As A Passenger? Yes [email or web address] Information not available 09/22/2025 Do You Use Your Seat Belt Or Car Seat Routinely? Yes Information not available 08/12/2024 Are You Sexually Active? Yes [email or web address] Information not available 10/22/2023 Do You Have Smoke And Carbon Monoxide Detectors In Your Home? Yes [email or web address] Information not available 09/22/2025 Are You Passively Exposed To Smoke? Yes [email or web address] Information no t available 09/22/2025 Are There Any Smokers In Your House? No [email or web address] Information not available 09/22/2025 Do You Participate In Social Media? Yes Information not available 08/12/2024 Has Tobacco Cessation Counseling Been Provided? Yes Information not available 08/12/2024 On What Date Was Tobacco Cessation Counseling Provided? 01/27/2025 Information not available 01/27/2025 Have You Recently Traveled Abroad? No Information not available 08/12/2024 Are You Currently In School? No [email or web address] Information not available 09/22/2025 Do You Feel Safe In Your Home? Yes [email or web address] Information not available 09/22/2025 Do You Have Any Dietary Restrictions? No Information not available 08/12/2024 Sex: Unknown Functional Status Question Answer Note LastModified by Organizat ion Details LastModified Time Do you use any illicit or recreational drugs? No [email or web address] Information not available 10/22/2023 Do you or have you ever used any other forms of tobacco or nicotine? No [email or web address] Information not available 10/22/2023 What is your level of alcohol consumption? None [email or web address] Information not available 10/22/2023 Are you currently employed? Yes [email or web address] Information not available 09/22/2025 Do you have transportation difficulties? No [email or web address] Information not available 09/22/2025 Are you able to care for yourself independently? Yes [email or web address] Information not available 09/22/2025 What is your exercise level? Occasional Information not available 08/12/2024 Mental Status Question Answer Note LastModified by Organization D etails LastModified Time Do you feel stressed (tense, restless, nervous, or anxious, or unable to sleep at night)? [id number] Information not available 08/12/2024 Are you or [...] environmental ) N Other N Hyperthyroidism N Breast Cancer N Drug/Latex Allergies/Reactions N Blood Transfusion N Emergency room visit since last appointm ent. N Hypothyroidism N Lung Disease N Dermatologic Disorders N Defects or Inherited Disease N Breast Problem N Gestational Diabetes N Hematologic disorders N Anesthesia Complications N History of STI N Deep Vein Thrombosis N Polycystic ovary syndrome N Anxiety Disorder Y Autoimmune disease N Vision or Eye Problems N Arthritis N Infertility N Polyps N Mental Disorder N Congenital Anomalies N Acid Reflux (GERD) N History of abnormal pap N Cancer N Stroke N Neurologic/Epilepsy N Endometriosis N High Cholesterol N Organ Transplant N Psychiatric/Mental Health Condition N Dialysis N Schizophrenia N Headaches N Fibromyalgia N Kidney Disease N Heart Problems N Hospitalizations N Kidney or Bladder Problems N Thyroid Problems N GI Problems N Acne N [...] ICD10 Code Diagnosis IMO Codes Diagnosis Note [id number] Frida GuerreroDO [facility] [address] [place] [address],[facility] [place] [address] 09/22/2025 15:34:11 09/22/2025 16:46:57 Vaginal discharge 035620105 N89.8 68042 Amenorrhea 59453619 N91. 2 66522 Health Concerns Section Related Observation LastModified by Organization Detai ls LastModified Time None Recorded Concern Status LastModified by Organization Details LastModified Time None Recorded Payers Encounter Date Sequence Insurance Name Policy Number Policy Conde Covered Member ID Conde Member ID Guarantor Name 09/22/2025 1 [place] [id number] Yesica Zimmerman [id number] AB Yesica Zimmerman OBGyn Episode Ob Episode Information Episode Created Date Number of Fetuses Patient Bloodtype Patient rh Status Prepregnancy Weight lbs Domestic Partner Domestic Partner Phone Father Name Income Auditor Status 10/09/20 25 1 Carlitofermin Jhaveri OPEN Fetus Data First Name Last Name Admitted to NICU Weight (g) Sex Living Outcome Pediatric Complications Fetus ID Race Codes Race Delivery Type [id number] Kee Calculation Initial Kee Date Initial Exam [...] Sound Latest Days Gestation 10/09/20 25 0 [email or web address] 10/09/2025 05/11/20 26 0 Pre-michael Flowsheet Flowsheet Date 10/09/2025 Loo Score Blood Edema Fundus Height Fundus Units Glucose Ketones Leukocytes Nitrite Labor Signs Protein Cervic Dilation Cervic Effacement Cervic Station none neg Type Weight in lbs Pre/Post Dialysis Refused With clothes 116.196578688697 BP Diastolic BP Location Tested BP Systolic [...] Estim ated Date of Delivery false Thalassemia (Afghan, Mongolian, Mediterranean, Or Background): MCV < 80 false Neural Tube Defect (Meningomyelocele, Spina Bifi da, Or Anencephaly) false Congenital Heart Defect false Down Syndrome false Morgan-Sachs (eg, Voodoo, Cajun, Chilean-Banner) f alse Kelechi Disease false Sickle Cell [...]
--- NOTE | 2025-10-31 19:13 | ED_ITS ---
<Statement entered by Ann Vallejo DO - 10/31/25 22:34> I was consulted by the TANIKA, and we discussed the complexity of problems being addressed. I approve the treatment and management plan for this patient's care in the emergency department, thus performing a substantial portion of the medical decision making. Ann Vallejo DO Discharge Plan Disposition Patient Disposition: Home, Self-Care Condition: Good Prescriptions Prescriptions: New cephalexin 500 mg capsule 500 mg PO TID 5 Days Qty: 15 0RF No Action promethazine 12.5 mg tablet 12.5 mg PO Q6H PRN (Reason: nausea) docusate sodium 100 mg capsule 100 mg PO BID sertraline 25 mg tablet 25 mg PO DAILY Qty: 90 1RF Referrals Follow up/Referrals: Stephy Winston APRN [Primary Care Provider, Family Practice] - See instructions Activity Restrictions/Add. Instructions Additional Instructions/Restrictions: Take the antibiotics as prescribed for 5 days. Call OB tomorrow to schedule an earlier appointment in the next 48 hours. Return to the emergency department for any severe worsening vaginal bleeding or pain. Clinical Impressions Clinical Impression: Vaginal bleeding during Instructions Patient Instructions: DI for Vaginal Bleeding Print Language Print Language: Cameroonian Discharge ED Provider: Ann Vallejo General Adult HPI <Linda Robert APRN - Last Filed: 10/31/25 21:13> General Chief complaint: Vaginal Bleeding Stated complaint: 13 Wks preg, bleeding down both legs Time Seen by Provider: 10/31/25 19:07 History of Present Illness HPI narrative: patient is a 20 year old female PMHx anxiety who presents to the ED for vaginal bleeding while 12 weeks . Patient states she follows with OB in [place], has been diagnosed with a subchorionic hemorrhage previously and has intermittent spotting from time to time. Today, she states she had eaten dinner, stood up, and had blood gushing down her legs. Related Data Home Medications ?Medication ?Instructions ?Recorded ?Confirmed docusate sodium 100 mg capsule 100 mg PO BID 10/31/25 10/31/25 promethazine 12.5 mg tablet 12.5 mg PO Q6H PRN nausea 10/31/25 10/31/25 Previous Rx's ?Medication ?Instructions ?Recorded cephalexin 500 mg capsule 500 mg PO TID 5 days #15 cap s 10/31/25 sertraline 25 mg tablet 25 mg PO DAILY #90 tabs 10/16 05/10 Allergies Allergy/AdvReac Type Severity Reaction Status Date / Time No Known Allergies Allergy Verified 10/31/25 11:56 PFS <Linda Robert APRN - Last Filed: 10/31/25 21:13> [facility] Disclaimer: The information contained in this section may have been updated after the patient was seen, as this information can be updated by other users. Medical History Anxiety Family History Other Diabetes Social History Smoking Status: Former smoker second hand exposure: No alcohol intake: never substance use type: denies use current occupational status: employed Travel in the last 8 weeks?: None household members: family housing: house marital status: single Have you lived/traveled outside [place] in past 30 days?: No Contact w/someone who lives/traveled outside US past 30 days?: No Exposure to someone with infectious disease in past 14 days?: No Do you have a fever (greater than 100.4 F or 38 C)?: No Have you tested positive for COVID-19?: No Exposed to someone with COVID-19 in past 14 days?: No Do you have a sore throat?: No Do you have a cough?: No Do you have any weakness?: No Do you have any diarrhea?: No Are you experiencing any unusual bleeding?: No Do you have any muscle aches/pain?: No Do you have any abdominal pain?: No Are you experiencing loss of taste or smell?: No Other Medical History Have you received the Pneumonia Vaccine: No <Linda Robert APRN - Last Filed: 10/31/25 21:13> ROS Obtained: Yes Systems reviewed as appropriate & no additional complaints except as documented Physical Exam <Linda Robert APRN - Last Filed: 10/31/25 21:13> General General appearance: alert Eye Eye exam: Present PERRL Neck Neck exam: Present full ROM Chest Chest inspection: Present normal inspection Respiratory Respiratory exam: Present normal lung sounds bilaterally Cardiovascular Cardiovascular exam: Present regular rate Abdominal Exam Abdominal exam: Present soft; Absent tenderness Extremities Exam Extremities exam: Present full ROM Neurological Exam Neurological exam: Present alert and oriented X3 Skin Skin exam: Present warm and dry Medical Decision Making <Linda Robert APRN - Last Filed: 10/31/25 21:13> Medical Records Screening: Per USPSTF and CDC recommendations, given the prevalence of disease in our region, it is our hospital?s policy to screen for HIV and viral Hepatitis for all patients aged 18 and over and those with ongoing risk factors. Ry Inquiry Pt receiving controlled substance: No Vital Signs: 10/31/25 19:17 Temperature 98.3 F Temperature Source Oral Pulse Rate [Left] 121 H Respiratory Rate 16 Blood Pressure [Right Arm] 129/77 Blood Pressure Mean [Right Arm] 94 Blood Pressure Source [Right Arm] Automatic Cuff Blood Pressure Position [Right Arm] Sitting 02 Sat by Pulse Oximetry 100 Oxygen Delivery Method Room Air Lab Data Lab Results 10/31/25 19:25: WBC 8.9, RBC 4.04 L, Hgb 11.9 L, Hct 34.1 L, MCV 84.4, MCH 29.5, MCHC 34.9, RDW 12.4, Plt Count 257, MPV 10.2, Neut % (Auto) 70.5, Lymph % (Auto) 22.4, [place] % (Auto) 4.6, Eos % (Auto) 1.7, Baso % (Auto) 0.3, Neut # (Auto) 6.2, Lymph # (Auto) 2.0, [place] # (Auto) 0.4, Eos # (Auto) 0.2, Baso # (Auto) 0.0, Sodium 137, Potassium 3.5, Chloride 105, Carbon Dioxide 21 L, Anion Gap 14.5, BUN 9, Creatinine 0.70, Estimated Creat Clear 108, Estimated GFR 107, Est GFR ( Amer) 129, Glucose 95, Calcium 9.6, Total Bilirubin 0.5, AST 32, ALT 20, Alkaline Phosphatase 56, Total Protein 7.3, Albumin 4.6, Globulin 2.7, Albumin/Globulin Ratio 1.7, HCG, Quant 12802 H, Blood Type A Negative, Antibody Screen Negative 10/31/25 21:58: Urine Color Yellow, Urine Appearance Sl cloudy, Urine pH 7.0, Ur Specific [place] 1.015, Urine Protein Negative, Urine Glucose (UA) Negative, Urine Ketones Negative, Urine Blood 3+ A, Urine Nitrate Negative, Urine Bilirubin Negative, Urine Urobilinogen 0.2, Ur Leukocyte Esterase Negative, Urine RBC 3-5, Urine WBC 5-10, Ur Squamous Epith Cells 5-10, Amorphous Sediment 3+, Urine Bacteria 1+, Urine Mucus 1+ 10/31/25 19:25 10/31/25 19:25 Orders (Tests/Meds): ED MEDICATIONS Discontinued Medications Generic Name Dose Route Start Last Admin Trade Name Lilly PRN Reason Stop Dose Admin Cephalexin HCl 500 mg 10/31/25 22:22 10/31/25 22:28 Cephalexin 500mg Capsule PO 10/31/25 22:23 500 mg ONCE ONE Administration Rho Immune Globulin 300 mcg 10/31/25 20:46 10/31/25 21:17 Rho(D) Immune Globulin 1,500 Unit (300mcg) Syringe IM 10/31/25 20:47 300 mcg ONCE ONE Administration ORDERS Category Date Time Status Type and Screen Stat BBK 10/31/25 19:25 Completed POCUS Point of Care (ER Only) Stat Exams 10/31/25 19:24 Ordered CBC w/Auto Diff [Complete Blood Count Auto Diff] Stat Lab 10/31/25 19:25 Completed CMP [Comprehensive Metabolic Panel] Stat Lab 10/31/25 19:25 Completed HCG,Quantitative Stat Lab 10/31/25 19:25 Completed UA [Urinalysis and Microscopic] Stat Lab 10/31/25 21:58 Completed Urine Culture Stat Micro 10/31/25 21:58 Received Medical Decision Narrative: In summary, patient is a 20 year old female PMHx anxiety who presents to the ED for vaginal bleeding while 12 weeks . Patient states she follows with OB in [place], has been diagnosed with a subchorionic hemorrhage previously and has intermittent spotting from time to time. Today, she states she had eaten dinner, stood up, and had blood gushing down her legs. Patient states she has had a very mild left lower quadrant abdominal pain today as well. She denies any recent trauma, denies having recent intercourse. She denies fever, chills, body aches, chest pain, shortness of breath, diarrhea, dysuria. Differential diagnosis includes subchorionic hemorrhage, bleeding, miscarriage, UTI, among others. Upon initial evaluation patient is alert, oriented and cooperative. She is hemodynamically stable. Physical exam is unremarkable, no abdominal tenderness. Discussed with patient we will proceed with labs. CBC unremarkable for any leukocytosis. CMP unremarkable. Quant 37, 269. Rhogam administered. Care transferred to Dr. Vallejo <Ann Vallejo, DO - Last Filed: 10/31/25 22:35> Vital Signs: 10/31/25 19:17 Temperature 98.3 F Temperature Source Oral Pulse Rate [Left] 121 H Respiratory Rate 16 Blood Pressure [Right Arm] 129/77 Blood Pressure Mean [Right Arm] 94 Blood Pressure Source [Right Arm] Automatic Cuff Blood Pressure Position [Right Arm] Sitting 02 Sat by Pulse Oximetry 100 Oxygen Delivery Method Room Air Lab Data Lab results reviewed: Yes I reviewed the patient's lab results. Lab Results 10/31/25 19:25: WBC 8.9, RBC 4.04 L, Hgb 11.9 L, Hct 34.1 L, MCV 84.4, MCH 29.5, MCHC 34.9, RDW 12.4, Plt Count 257, MPV 10.2, Neut % (Auto) 70.5, Lymph % (Auto) 22.4, [place] % (Auto) 4.6, Eos % (Auto) 1.7, Baso % (Auto) 0.3, Neut # (Auto) 6.2, Lymph # (Auto) 2.0, [place] # (Auto) 0.4, Eos # (Auto) 0.2, Baso # (Auto) 0.0, Sodium 137, Potassium 3.5, Chloride 105, Carbon Dioxide 21 L, Anion Gap 14.5, BUN 9, Creatinine 0.70, Estimated Creat Clear 108, Estimated GFR 107, Est GFR ( Amer) 129, Glucose 95, Calcium 9.6, Total Bilirubin 0.5, AST 32, ALT 20, Alkaline Phosphatase 56, Total Protein 7.3, Albumin 4.6, Globulin 2.7, Albumin/Globulin Ratio 1.7, HCG, Quant 95246 H, Blood Type A Negative, Antibody Screen Negative 10/31/25 21:58: Urine Color Yellow, Urine Appearance Sl cloudy, Urine pH 7.0, Ur Specific [place] 1.015, Urine Protein Negative, Urine Glucose (UA) Negative, Urine Ketones Negative, Urine Blood 3+ A, Urine Nitrate Negative, Urine Bilirubin Negative, Urine Urobilinogen 0.2, Ur Leukocyte Esterase Negative, Urine RBC 3-5, Urine WBC 5-10, Ur Squamous Epith Cells 5-10, Amorphous Sediment 3+, Urine Bacteria 1+, Urine Mucus 1+ Orders (Tests/Meds): ED MEDICATIONS Discontinued Medications Generic Name Dose Route Start Last Admin Trade Name Thomasq PRN Reason Stop Dose Admin Cephalexin HCl 500 mg 10/31/25 22:22 10/31/25 22:28 Cephalexin 500mg Capsule PO 10/31/25 22:23 500 mg ONCE ONE Administration Rho Immune Globulin 300 mcg 10/31/25 20:46 10/31/25 21:17 Rho(D) Immune Globulin 1,500 Unit (300mcg) Syringe IM 10/31/25 20:47 300 mcg ONCE ONE Administration ORDERS Category Date Time Status Type and Screen Stat BBK 10/31/25 19:25 Completed POCUS Point of Care (ER Only) Stat Exams 10/31/25 19:24 Ordered CBC w/Auto Diff [Complete Blood Count Auto Diff] Stat Lab 10/31/25 19:25 Completed CMP [Comprehensive Metabolic Panel] Stat Lab 10/31/25 19:25 Completed HCG,Quantitative Stat Lab 10/31/25 19:25 Completed UA [Urinalysis and Microscopic] Stat Lab 10/31/25 21:58 Completed Urine Culture Stat Micro 10/31/25 21:58 Received Medical Decision Narrative: In summary, patient is a 20 year old female PMHx anxiety who presents to the ED for vaginal bleeding while 12 weeks . Patient states she follows with OB in [place], has been diagnosed with a subchorionic hemorrhage previously and has intermittent spotting from time to time. Today, she states she had eaten dinner, stood up, and had blood gushing down her legs. Patient states she has had a very mild left lower quadrant abdominal pain today as well. She denies any recent trauma, denies having recent intercourse. She denies fever, chills, body aches, chest pain, shortness of breath, diarrhea, dysuria. Differential diagnosis includes subchorionic hemorrhage, bleeding, miscarriage, UTI, among others. Upon initial evaluation patient is alert, oriented and cooperative. She is hemodynamically stable. Physical exam is unremarkable, no abdominal tenderness. Discussed with patient we will proceed with labs. CBC unremarkable for any leukocytosis. CMP unremarkable. Quant 37, 269. Rhogam administered. Care transferred to Dr. Yoni Vallejo, DO I assumed care of the patient at 2100. Bedside ultrasound was performed and showed an IUP with a heart rate of 156. Patient was a negative, patient was given RhoGAM. Patient did not have any abdominal pain here in the emergency department and patient's bleeding had stopped. At this time, I felt the patient was stable and appropriate for outpatient follow-up with her OB. Patient's urine did have bacteria therefore patient was given a dose of Keflex in the emergency department and given an outpatient prescription. Was advised to call her OB tomorrow for outpatient follow-up in 48 hours. Patient was given return precautions for any acute or worsening bleeding. Critical Care <Linda Robert, [employer] - Last Filed: 10/31/25 21:13> Critical Care Time Critical Care Time: No
[2025-10-31 19:15] VITALS: BP 129/77
[2025-10-31 19:16] VITALS: PULSE 113; O2SAT 100
[2025-10-31 19:17] VITALS: BP 129/77; PULSE 121; RESP 16; TEMP 36.8; O2SAT 100; BMI 17.4
[2025-10-31 19:30] VITALS: BP 123/73; PULSE 109; O2SAT 100
[2025-10-31 19:38] LABS: Hematocrit 34.1 % (37.0-47.0); Hemoglobin 11.9 g/dL (12.2-16.2); Immature Granulocytes % 0.5 %; Mean Corpuscular HGB Conc 34.9 g/dL (31.8-35.4); Mean Corpuscular Hemoglobin 29.5 pg (27.0-31.2); Mean Corpuscular Volume 84.4 fl (81-99); Nucleated Red Blood Cells % 0 %; Platelet Count 257 K/mm3 (142-424); Red Blood Count 4.04 M/mm3 (4.20-5.40); Red Cell Distribution Width-SD 37.6 fL; White Blood Count 8.9 K/mm3 (4.5-13.0)
[2025-10-31 19:50] LABS: Alanine Aminotransferase 20 U/L (12-78); Albumin Level 4.6 g/dl (3.5-5.0); Albumin/Globulin Ratio 1.7 (1.1-1.8); Alkaline Phosphatase 56 U/L (38-126); Anion Gap 14.5 mEq/L (5-15); Aspartate Amino Transferase 32 U/L (14-36); Bilirubin,Total 0.5 mg/dl (0.2-1.3); Blood Urea Nitrogen 9 mg/dl (7-17); Calcium 9.6 mg/dl (8.4-10.2); Carbon Dioxide 21 mmol/L (22.0-30.0); Chloride 105 mmol/L (98-107); Creatinine Clearance Estimated 108 mL/min (50-200); Creatinine,Serum 0.70 mg/dl (0.52-1.04); Estimated Glomerular Filt Rate 107 ml/min (>60); GFR (African American) 129 ML/MIN (>60); Globulin 2.7 g/dL (1.3-3.2); Glucose 95 mg/dl (74-100); Potassium 3.5 mmoL/L (3.5-5.1); Sodium 137 mmol/L (136-145); Total Protein,Serum 7.3 g/dl (6.3-8.2)
[2025-10-31] MEDS: RHO(D) IMMUNE GLOBULIN 1,500 UNIT (300MCG) SYRINGE 300 MCG IM (21:17)
--- NOTE | 2025-10-31 22:00 | PC.NURSE ---
urine specimen sent to lab @[id number]
[2025-10-31 22:03] LABS: Microscopic, Urine URINE MICROSCOPIC (MICROSCOPIC)
[2025-10-31 22:09] LABS: Bilirubin,Urine Negative (Negative); Color,Urine YELLOW (Yellow); Glucose,Urine (UA) Negative (Negative); Ketones,Urine Negative (Negative); Leukocyte Esterase,Urine Negative (Negative); PH,Urine 7.0 (5.0-8.5); Protein,Urine Negative (Negative); Specific Gravity, Urine 1.015 (1.005-1.030); Urobilinogen,Urine 0.2 EU/dl (0.2)
[2025-10-31 22:20] LABS: Amorphous Sediment,Urine 3+ /lpf; Bacteria,Urine 1+ /lpf; Mucus,Urine 1+ /lpf
[2025-10-31 22:36] VITALS: BP 123/73; PULSE 109; RESP 17; TEMP 36.8; O2SAT 100
== END 2025-10-31 22:38 | disposition home or self-care (01) ==
PROVIDERS: Emergency Provider Student in an Organized Health Care Education/Training Program; PCP Nurse Practitioner Family
DX: O46.91 Antepartum hemorrhage, unspecified, first trimester (principal); Z3A.12 12 weeks gestation of pregnancy; Z87.891 Personal history of nicotine dependence; Z29.13 Encounter for prophylactic Rho(D) immune globulin
CPT/HCPCS: 36415; 80053; 81001; 84702; 85025; 86850; 87086; 96372; 99285; J2790